=== PATIENT | male | born 1985 | race African-American/Black ===

== ENCOUNTER 2018-08-19 15:22 | Emergency (ER) | payer OTHER ==
--- NOTE | 2018-08-19 15:52 | ER Document Report ---
ED Medical Screen (RME) - General Chief Complaint: Chest Pain Stated Complaint: BLOOD PRESSURE ISSUE, CHEST PAIN Time Seen by Provider: 08/19/18 15:47 Notes: 32[facility]year-old [facility] a 2-year history of chest pain and difficulty breathing. He is also sent to have his blood pressure evaluated. I have greeted and performed a rapid initial assessment of this patient. A comprehensive ED assessment and evaluation of the patient, analysis of test results and completion of the medical decision making process will be conducted by additional ED providers. TRAVEL OUTSIDE OF THE [place] IN LAST 30 DAYS: No - Related Data Allergies/Adverse Reactions: No Known Allergies Allergy (Unverified 08/19/18 15:25) Past Medical History - Social History Chew tobacco use (# tins/day): No Frequency of alcohol use: None Drug Abuse: None Renal/ Medical History: Denies: Hx Peritoneal Dialysis Physical Exam - Vital signs Vitals: Temp Pulse Resp BP Pulse Ox 98.8 F 82 16 150/85 H 98 08/19/18 15:26 08/19/18 15:26 08/19/18 15:26 08/19/18 15:26 08/19/18 15:26 Course - Vital Signs Vital signs: Temp Pulse Resp BP Pulse Ox 98.8 F 82 16 150/85 H 98 08/19/18 15:26 08/19/18 15:26 08/19/18 15:26 08/19/18 15:26 08/19/18 15:26
--- NOTE | 2018-08-19 16:18 | RADIOLOGY REPORT (SQ) ---
EXAM DESCRIPTION: CHEST 2 VIEWS COMPLETED DATE/TIME: 08/19/2018 4:08 pm REASON FOR STUDY: SOB x 2 years COMPARISON: None. EXAM PARAMETERS: NUMBER OF VIEWS: two views TECHNIQUE: Digital Frontal and Lateral radiographic views of the chest acquired. RADIATION DOSE: NA LIMITATIONS: none FINDINGS: LUNGS AND PLEURA: No opacities, masses or pneumothorax. No pleural effusion. MEDIASTINUM AND HILAR STRUCTURES: No masses or contour abnormalities. HEART AND VASCULAR STRUCTURES: Heart normal size. No evidence for failure. BONES: No acute findings. HARDWARE: None in the chest. OTHER: No other significant finding. IMPRESSION: NO ACUTE RADIOGRAPHIC FINDING IN THE CHEST. TECHNICAL DOCUMENTATION: JOB ID: [id number] [employer]- All Rights Reserved Reading location - IP/workstation name: [email or web address]
[2018-08-19] MEDS ORDERED: CLONIDINE HCL 0.1 MG TABLET PO ONE (16:21)
--- NOTE | 2018-08-19 16:25 | ER Document Report ---
ED General - General Chief Complaint: Chest Pain Stated Complaint: BLOOD PRESSURE ISSUE, CHEST PAIN Time Seen by Provider: 08/19/18 15:47 Mode of Arrival: Ambulatory Information source: Patient Notes: 32-year-old male presents emergency department with complaints of intermittent chest pain, intermittent shortness of breath, hypertension. Patient states that he went to the [facility] today for evaluation was sent to the emergency department. Patient describes his chest pain as a throbbing sensation located in left chest. He denies any radiation of the pain. He denies any alleviating or exacerbating factors. He did not take any medication for his symptoms. Patient states that currently he is not having any chest pain or shortness of breath. He denies any medical problems. Patient denies any high blood pressure, diabetes, high cholesterol, smoking. Patient states that his brother at the age of 26 due to a heart attack. Patient denies any recent travel, recent surgeries, calf pain, history of DVT or PE, hormone use. TRAVEL OUTSIDE OF THE [place] IN LAST 30 DAYS: No - HPI Onset: This morning Onset/Duration: Sudden Quality of pain: No pain Severity: None Pain Level: Denies Associated symptoms: Shortness of breath Exacerbated by: Denies Relieved by: Denies Similar symptoms previously: Yes Recently seen / treated by doctor: No - Related Data Allergies/Adverse Reactions: No Known Allergies Allergy (Unverified 08/19/18 15:25) Past Medical History - General Information source: Patient - Social History Smoking Status: Former Smoker Chew tobacco use (# tins/day): No Frequency of alcohol use: None Drug Abuse: None Family History: CAD Patient has suicidal ideation: No Patient has homicidal ideation: No Renal/ Medical History: Denies: Hx Peritoneal Dialysis Review of Systems - Review of Systems Constitutional: No symptoms reported EENT: No symptoms reported Cardiovascular: Chest pain Respiratory: Short of breath Gastrointestinal: No symptoms reported Genitourinary: No symptoms reported Male Genitourinary: No symptoms reported Musculoskeletal: No symptoms reported Skin: No symptoms reported Hematologic/Lymphatic: No symptoms reported Neurological/Psychological: No symptoms reported -: Yes All other systems reviewed and negative Physical Exam - Vital signs Vitals: Temp Pulse Resp BP Pulse Ox 98.8 F 82 16 150/85 H 98 08/19/18 15:26 08/19/18 15:26 08/19/18 15:26 08/19/18 15:26 08/19/18 15:26 - Notes Notes: PHYSICAL EXAMINATION: GENERAL: Well-appearing, well-nourished and in no acute distress. HEAD: Atraumatic, normocephalic. EYES: Pupils equal round and reactive to light, extraocular movements intact, sclera anicteric, conjunctiva are normal. ENT: Nares patent, oropharynx clear without exudates. Moist mucous membranes. NECK: Normal range of motion, supple without lymphadenopathy LUNGS: Breath sounds clear to auscultation bilaterally and equal. No wheezes r ales or rhonchi. HEART: Regular rate and rhythm without murmurs ABDOMEN: Soft, nontender, nondistended abdomen. No guarding, no rebound. No masses appreciated. Musculoskeletal: Normal range of motion, no pitting or edema. No cyanosis. NEUROLOGICAL: Cranial nerves grossly intact. Normal speech, normal gait. Normal sensory, motor exams PSYCH: Normal mood, normal affect. SKIN: Warm, Dry, normal turgor, no rashes or lesions noted. Course - Re-evaluation Re-evalutation: 08/19/18 16:25 EKG: Ventricular rate 66, IL interval 156, QRS duration 84, QTc 382, sinus rhythm. No ST segment elevation. 08/19/18 19:00 Repeat EKG: Ventricular rate 67, IL interval 176, QRS duration 84, QTc 401, normal sinus rhythm. No ST segment elevation. 08/19/18 19:57 Labs and imaging obtained. No acute process identified. Troponin was negative x2. D-dimer was normal. Chest x-ray did not show any acute process. Patient continues to be asymptomatic while in the emergency department. Instructed patient to follow-up with his primary care physician this week, to take [id number] medication as needed for symptom relief, and to return to the emergency department if he has any worsening symptoms. Patient is agreeable to plan of care. - Vital Signs Vital signs: Temp Pulse Resp BP Pulse Ox 98.8 F 82 20 122/80 97 08/19/18 15:26 18 15:26 08/19/18 19:01 08/19/18 19:01 08/19/18 19:01 - Laboratory Result Diagrams: 08/19/18 16:19 08/19/18 16:19 Laboratory results interpreted by me: 08/19/18 08/19/18 16:19 16:19 Seg Neutrophils % 38.7 L Lymphocytes % 48.4 H Absolute Neutrophils 1.6 L Glucose 116 H Creatine Kinase 244 H Discharge - Discharge Clinical Impression: Chest pain Qualifiers: Chest pain type: unspecified Qualified Code(s): R07.9 - Chest pain, unspecified Disposition: HOME, SELF-CARE Instructions: Chest Pain of Unclear Cause ([facility]) [facility]errals: [facility] [[facility]] - Follow up as needed
[2018-08-19 16:54] LABS: ABSOLUTE EOSINOPHILS # (AUTO) 0.2 10^3/uL (0.0-0.6); ABSOLUTE LYMPHOCYTES (AUTO) 2.1 10^3/uL (0.5-4.7); ABSOLUTE MONOCYTES (AUTO) 0.4 10^3/uL (0.1-1.4); ABSOLUTE NEUT (AUTO) 1.6 10^3/uL (1.7-8.2); BASOPHILS % (AUTO) 0.7 % (0-2); EOSINOPHILS % (AUTO) 3.9 % (0-6); HEMATOCRIT 43.1 % (37.9-51.0); HEMOGLOBIN 15.3 g/dL (13.5-17.0); LYMPHOCYTES % (AUTO) 48.4 % (13-45); MEAN CORPUSCULAR HEMOGLOBIN 31.7 pg (27.0-33.4); MEAN CORPUSCULAR HGB CONC 35.4 g/dL (32.0-36.0); MEAN CORPUSCULAR VOLUME 90 fl (80-97); MONOCYTES % (AUTO) 8.3 % (3-13); PLATELET COUNT 167 10^3/uL (150-450); RED BLOOD COUNT 4.81 10^6/uL (4.35-5.55); RED CELL DISTRIBUTION WIDTH 12.8 % (11.5-14.0); SEGMENTED NEUTROPHILS % (AUTO) 38.7 % (42-78); TOTAL CELLS COUNTED % (AUTO) 100 %; WHITE BLOOD COUNT 4.3 10^3/uL (4.0-10.5)
[2018-08-19 16:55] LABS: APPEARANCE,URINE CLEAR; BILIRUBIN,URINE NEGATIVE (NEGATIVE); COLOR,URINE YELLOW; GLUCOSE, URINE NEGATIVE (NEGATIVE); KETONES,URINE NEGATIVE (NEGATIVE); LEUKOCYTE ESTERASE,URINE NEGATIVE (NEGATIVE); NITRITE,URINE NEGATIVE (NEGATIVE); PROTEIN,URINE NEGATIVE (NEGATIVE); UROBILINOGEN,URINE NEGATIVE mg/dL (<2.0)
[2018-08-19 17:14] LABS: ALANINE AMINOTRANSFERASE 45 U/L (21-72); ALBUMIN 4.7 g/dL (3.5-5.0); ALKALINE PHOSPHATASE 61 U/L (38-126); ANION GAP 9 (5-19); ASPARTATE AMINO TRANSFERASE 35 U/L (17-59); BILIRUBIN,DIRECT 0.2 mg/dL (0.0-0.4); BILIRUBIN,TOTAL 0.6 mg/dL (0.2-1.3); BLOOD UREA NITROGEN 12 mg/dL (7-20); CALCIUM 9.7 mg/dL (8.4-10.2); CARBON DIOXIDE 28 mmol/L (22-30); CHLORIDE 104 mmol/L (98-107); CREATINE KINASE 244 U/L (55-170); GLUCOSE 116 mg/dL (75-110)
[2018-08-19 17:28] LABS: FREE T4 (FREE THYROXINE) 0.83 ng/dL (0.78-2.19)
[2018-08-19 17:42] LABS: THYROID STIMULATING HORMONE 1.47 uIU/mL (0.47-4.68)
--- NOTE | 2018-08-19 18:21 | EKG REPORT ---
SEVERITY:- NORMAL ECG - SINUS RHYTHM : Confirmed by: J Carlos Colbert MD 19-Aug-2018 18:20:39
[2018-08-19 20:35] VITALS: BP 123/83
--- NOTE | 2018-08-20 07:54 | EKG REPORT ---
SEVERITY:- NORMAL ECG - SINUS RHYTHM : Confirmed by: J Carlos Colbert MD 20-Aug-2018 07:53:57
== END 2018-08-19 20:25 | disposition home or self-care (01) ==
LOC: ER 15:22
DX: R07.9 Chest pain, unspecified (principal); R06.02 Shortness of breath; R03.0 Elevated blood-pressure reading, without diagnosis of hypertension
CPT/HCPCS: 36415; 71046; 80053; 81001; 82550; 83735; 84439; 84443; 84484; 85025; 85379; 93005; 93010; 99285

== ENCOUNTER 2020-08-31 19:41 | Inpatient (IN) | payer OTHER ==
[2020-08-31] MEDS ORDERED: ONDANSETRON 4 MG TAB.RAPDIS PO ONE (20:24)
--- NOTE | 2020-08-31 20:27 | ER Document Report ---
ED Medical Screen (RME) - General Stated Complaint: CHEST PAIN ABDOMINAL PAINS Time Seen by Provider: 08/31/20 20:20 Primary Care Provider: ELLE SORIA [Primary Care Provider] - Follow up as needed Notes: Patient presents complaining of chest pain with shortness of breath for the past week. Patient does complain of some nausea. Patient states he had epigastric abdominal pain earlier today although it is currently resolved. Patient denies any fever or headache. Patient denies any vomiting or diarrhea. Patient does report a history of COPD. I have greeted and performed a rapid initial assessment of this patient. A comprehensive ED assessment and evaluation of the patient, analysis of test results and completion of the medical decision making process will be conducted by additional ED providers. TRAVEL OUTSIDE OF THE [place] IN LAST 30 DAYS: No - Related Data Allergies/Adverse Reactions: No Known Allergies Allergy (Unverified 08/19/18 15:25) Past Medical History Renal/ Medical History: Denies: Hx Peritoneal Dialysis Physical Exam - Vital signs Vitals: Temp Pulse Resp BP Pulse Ox 97.9 F 106 H 17 143/98 H 98 08/31/20 19:45 08/31/20 19:45 08/31/20 19:45 08/31/20 19:45 08/31/20 19:45 - Respiratory Respiratory status: Tachypnea Chest status: Tender Breath sounds: Normal Course - Vital Signs Vital signs: Temp Pulse Resp BP Pulse Ox 97.9 F 106 H 17 143/98 H 98 08/31/20 19:45 08/31/20 19:45 08/31/20 19:45 08/31/20 19:45 08/31/20 19:45 Doctor's Discharge - Discharge Referrals: ELLE SORIA [Primary Care Provider] - Follow up as needed
--- NOTE | 2020-08-31 21:11 | RADIOLOGY REPORT (SQ) ---
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 FINDINGS: Single view is obtained. Cardiac and mediastinal contours are normal. Lungs are clear. No pleural effusion or pneumothorax. IMPRESSION: No acute disease.
[2020-09-01] MEDS ORDERED: ONDANSETRON 4 MG TAB.RAPDIS ONE (01:25)
[2020-09-01 02:20] LABS: ABSOLUTE MONOCYTES (AUTO) 0.2 10^3/uL (0.1-1.4); ABSOLUTE NEUT (AUTO) 2.4 10^3/uL (1.7-8.2); BASOPHILS % (AUTO) 0.8 % (0-2); EOSINOPHILS % (AUTO) 0.2 % (0-6); HEMOGLOBIN 17.2 g/dL (13.5-17.0); LYMPHOCYTES % (AUTO) 42.3 % (13-45); MEAN CORPUSCULAR HEMOGLOBIN 31.3 pg (27.0-33.4); MEAN CORPUSCULAR HGB CONC 35.1 g/dL (32.0-36.0); MEAN CORPUSCULAR VOLUME 89 fl (80-97); PLATELET COUNT 164 10^3/uL (150-450); RED CELL DISTRIBUTION WIDTH 12.8 % (11.5-14.0); SEGMENTED NEUTROPHILS % (AUTO) 51.7 % (42-78); TOTAL CELLS COUNTED % (AUTO) 100 %; WHITE BLOOD COUNT 4.6 10^3/uL (4.0-10.5)
[2020-09-01 02:34] LABS: ALBUMIN 5.1 g/dL (3.5-5.0); ALKALINE PHOSPHATASE 92 U/L (38-126); ASPARTATE AMINO TRANSFERASE 18 U/L (17-59); BILIRUBIN,DIRECT 0.2 mg/dL (0.0-0.4); BILIRUBIN,TOTAL 0.9 mg/dL (0.2-1.3); BLOOD UREA NITROGEN 12 mg/dL (7-20); CALCIUM 10.8 mg/dL (8.4-10.2); GLUCOSE 381 mg/dL (75-110); POTASSIUM 4.7 mmol/L (3.6-5.0); TOTAL PROTEIN 8.5 g/dL (6.3-8.2)
[2020-09-01 02:40] LABS: CHLORIDE 101 mmol/L (98-107)
[2020-09-01 02:46] LABS: ANION GAP 27 (5-19); CARBON DIOXIDE 9 mmol/L (22-30)
--- NOTE | 2020-09-01 04:55 | ER Document Report ---
ED Medical Screen (RME) - General Chief Complaint: Chest Pain > 30 Stated Complaint: CHEST PAIN ABDOMINAL PAINS Time Seen by Provider: 08/31/20 20:20 Primary Care Provider: ELLE SORIA [Primary Care Provider] - Follow up as needed TRAVEL OUTSIDE OF THE [place] IN LAST 30 DAYS: No - HPI Context: Chief Complaint: [Chest abdominal pain] [34-year-old male presents to the emergency department complaining of chest abdominal pain. Patient denies any prior history of diabetes but states he does have a family history of diabetes. Patient has a pizza box in the room with him and he is requesting something for heartburn. Patient states he has been having shortness of breath for about a week and the epigastric pain started tonight. ] History obtained from [patient] Symptoms began:[Shortness of breath x1 week and epigastric pain x1 day] Onset: [Gradual] Timing: [Gradual] Quality: [Burning] Intensity: [5 out of 5] Location: [Lungs, chest and epigastric region] Radiation: [Denies] [The pain does not migrate to a new location.] Aggravating factors: [none] Relieving factors: [none] Positive SOB [Denies] nausea [Denies] vomiting [Denies] sweats [Denies] fever [Denies] cough [Denies] calf or leg swelling or pain - Related Data Allergies/Adverse Reactions: No Known Allergies Allergy (Unverified 08/19/18 15:25) Past Medical History - General Information source: Patient - Social History Family history: DM Renal/ Medical History: Denies: Hx Peritoneal Dialysis Review of Systems - Review of Systems Notes: Review of systems as below unless otherwise stated in HPI. CONSTITUTIONAL [No] fever, [No] chills. EYES [No] eye pain. ENT [No] URI symptoms, [No] sore throat, [No] ear pain. CARDIOVASCULAR Positive chest pain, [No] palpitations, [No] edema. RESPIRATORY [No] Cough, positive SOB, [No] wheezing. GASTROINTESTINAL Positive abdominal pain, [No] nausea, [No] Diarrhea, [No] Vomiting, [No] constipation, [No] melena, [No] rectal bleeding. GENITOURINARY [No] dysuria, [No] urinary frequency, [No] hematuria, [No] urinary urgency MUSCULOSKELETAL [No] Back pain. SKIN [No] Rash. NEUROLOGIC [No] Headache, [No] recent seizures, [No] paralysis,[No] parathesias. ENDOCRINE [No] polyuria. HEMO/LYMPATIC [No] easy brusing PSYCHIATRIC [No] depression. Physical Exam - Vital signs Vitals: Temp Pulse Resp BP Pulse Ox 97.9 F 106 H 17 143/98 H 98 08/31/20 19:45 08/31/20 19:45 08/31/20 19:45 08/31/20 19:45 08/31/20 19:45 - Notes Notes: CONSTITUTIONAL [Vital signs reviewed, Patient appears slightly uncomfortable, Alert and oriented X 3, Normal stature.] HEAD [Atraumatic, Normocephalic.] EYES [Eyes are normal to inspection, No discharge from eyes, Extraocular muscles i ntact, Sclera are normal, Conjunctiva are normal.] ENT [External ears normal to inspection, Nose examination normal, Mouth normal to inspection.] NECK [Normal ROM, No jugular venous distention, No meningeal signs, ] RESPIRATORY CHEST [Chest is nontender, Breath sounds normal, No respiratory distress. CARDIOVASCULAR [RRR, No murmurs, Normal S1 S2, No rub, No gallop.] ABDOMEN [Abdomen is nontender, No pulsatile masses, No other masses, Bowel sounds normal, No distension, No peritoneal signs, No hernias.] BACK [There is no CVA Tenderness, There is no tenderness to palpation, Normal inspect ion.] UPPER EXTREMITY [Inspection normal, No cyanosis, No clubbing, No edema, LOWER EXTREMITY [Inspection normal, No cyanosis, No clubbing, No edema, No calf tenderness, NEURO [No focal motor deficits, No focal sensory deficits, Speech normal.] SKIN [Skin is warm, Skin is dry, Skin is normal color.] PSYCHIATRIC [Normal affect. ] Course - Vital Signs Vital signs: Temp Pulse Resp BP Pulse Ox 97.9 F 72 18 138/98 H 100 08/31/20 19:45 09/01/20 00:30 09/01/20 04:02 09/01/20 04:02 09/01/20 04:02 - Laboratory Results Result Diagrams: 09/01/20 01:35 09/01/20 01:35 Laboratory Results Interpreted: 09/01/20 09/01/20 01:35 01:35 Hgb 17.2 H Sodium 136.8 L Carbon Dioxide 9 L* Anion Gap 27 H Glucose 381 H Calcium 10.8 H Total Protein 8.5 H Albumin 5.1 H Doctor's Discharge - Discharge [facility]errals: [facility] [[facility]] - Follow up as needed
[2020-09-01] MEDS ORDERED: LIDOCAINE 2% VISCOUS SOLN 15 ML UDCUP PO ONE (05:01)
[2020-09-01] MEDS ORDERED: METOCLOPRAMIDE HCL ORAL SOLN 10 MG/10 ML UDCUP PO ONE (05:01)
[2020-09-01] MEDS ORDERED: MAG HYDROX/AL HYDROX/SIMETH SUSP 30 ML UDCUP PO ONE (05:01)
--- NOTE | 2020-09-01 05:28 | ER Document Report ---
ED General - General Chief Complaint: Chest Pain > 30 Stated Complaint: CHEST PAIN ABDOMINAL PAINS Time Seen by Provider: 08/31/20 20:20 Mode of Arrival: Ambulatory Information source: Patient Notes: 34-year-old male presented to ED for complaint of chest pain shortness of breath for the past week. He states he is also been very thirsty frequently nauseated and urinating much more frequently than normal. He did have a glucose of 381 on the initial labs. I have ordered a hemoglobin A1c IV fluids and ABG. He states he has diabetes high blood pressure coronary artery disease and cholesterol on both sides of his family. He states that the [place] has told him several times that he has high blood pressure but they have never started him on any high blood pressure medication. He states he was just told in the beginning of 2019 that he had COPD and he quit smoking at that time. He states he drinks alcohol maybe every 2 or 3 months. He denies any past medical or surgical history except for the COPD. Constitutional: Negative for fever. HENT: Negative for sore throat. Eyes: Negative for visual changes. Cardiovascular: Chest pains off and on for the last week Respiratory: shortness of breath for the last week. Gastrointestinal: States he has had nausea off and on for the last week Genitourinary: Complains of more frequent urination Musculoskeletal: Negative for back pain. Skin: Negative for rash. Neurological: Negative for headaches, weakness or numbness. 10 point ROS negative except as marked above and in HPI. VITAL SIGNS: Within normal limits. GENERAL: No acute distress, non-toxic appearance. HEAD: Normal with no signs of head trauma. EYES: PERRLA, EOMI, conjunctiva normal, no discharge. EARS: Hearing grossly intact. NOSE: Normal. THROAT: Oropharynx is normal. NECK: Normal range of motion, no tenderness, supple, no lymphadenopathy, No adenopathy, no JVD. CHEST: Clear breath sounds bilaterally. No wheezes, rales, or rhonchi. CARDIAC: Regular rate and rhythm. S1 and S2, without murmurs, gallops, or rubs. VASCULAR: No Edema. Peripheral pulses normal and equal in all extremities. ABDOMEN: Epigastric pain and heartburn GASTROINTESTINAL: Bowel sounds normal GENITOURINARY: Normal, No tenderness LYMPATHTIC: No lymphadenopathy noted. MUSCULOSKELETAL: Good range of motion of all major joints. Extremities without clubbing, cyanosis or edema. NEUROLOGICAL: Alert and oriented x 3. No focal sensory or strength deficits. Speech normal. Follows commands appropriately. PSYCHIATRIC: Normal Affect, judgement and mood. SKIN: Normal appearance with no rashes or lesions. TRAVEL OUTSIDE OF THE [place] IN LAST 30 DAYS: No - HPI Onset: Last week Onset/Duration: Intermittent Quality of pain: Other - Heartburn Severity: Moderate Pain Level: 3 Associated symptoms: Chest pain - Epigastric pain, Nausea, Other - More frequent urination more frequent thirst Exacerbated by: Denies Relieved by: Denies Similar symptoms previously: Yes Recently seen / treated by doctor: No - Related Data Allergies/Adverse Reactions: No Known Allergies Allergy (Unverified 08/19/18 15:25) Past Medical History - General Information source: Patient - Social History Smoking Status: Former Smoker Cigarette use (# per day): No Chew tobacco use (# tins/day): No Smoking Education Provided: No Frequency of alcohol use: Occasional Drug Abuse: None Lives with: Family Family History: CAD, DM, Hyperlipidemia, Hypertension Patient has suicidal ideation: No Patient has homicidal ideation: No - Past Medical History Cardiac Medical History: Reports: Hx Hypertension Pulmonary Medical History: Reports: Hx COPD EENT Medical History: Reports: None Neurological Medical History: Reports: None Endocrine Medical History: Reports: None Renal/ Medical History: Reports: None Malignancy Medical History: Reports None GI Medical History: Reports: None Musculoskeletal Medical History: Reports None Skin Medical History: Reports None Psychiatric Medical History: Reports: None Traumatic Medical History: Reports: None Infectious Medical History: Reports: None Surgical Hx: Negative Past Surgical History: Reports: None - Immunizations Immunizations up to date: No Hx Diphtheria, Pertussis, Tetanus Vaccination: No History of Pneumococcal Vaccine: No History of Influenza Vaccine for 05/2019 - 10/2019 Season: No Physical Exam - Vital signs Vitals: Temp Pulse Resp BP Pulse Ox 97.9 F 106 H 17 143/98 H 98 08/31/20 19:45 08/31/20 19:45 08/31/20 19:45 08/31/20 19:45 08/31/20 19:45 Course - Re-evaluation Re-evalutation: 09/01/20 09:22 34-year-old male presented to ED earlier this shift for chest pain shortness of breath with increased thirst and urination. Patient stated that his family has a long history on both sides for diabetes blood pressure and multiple other chronic ailments and he was very upset when I informed him that his sugar was such that he was diabetic. I did discuss with him the need to be admitted and started on insulin drip due to his acidosis. He has been given 2 L of fluid and when I talked to Dr. Glass she stated he would need another 2 L and she was admitting to [facility]. Ready spoke with Dr. Santo who commended start the patient on a insulin drip. This was started prior to his admission. - Vital Signs Vital signs: Temp Pulse Resp BP Pulse Ox 97.9 F 72 16 147/94 H 100 08/31/20 19:45 09/01/20 00:30 09/01/20 08:01 09/01/20 08:01 09/01/20 08:01 - Laboratory Results Result Diagrams: 09/01/20 01:35 09/01/20 05:50 Laboratory Results Interpreted: 09/01/20 09/01/20 09/01/20 01:35 01:35 01:35 Hgb 17.2 H Carbonic Acid ABG pH ABG pCO2 ABG pO2 ABG HCO3 ABG Total CO2 ABG O2 Saturation Sodium 136.8 L Carbon Dioxide 9 L* Anion Gap 27 H Glucose 381 H POC Glucose Hemoglobin A1c % > 14.0 H Calcium 10.8 H Total Protein 8.5 H Albumin 5.1 H Urine Protein Urine Glucose (UA) Urine Ketones Urine Blood 09/01/20 09/01/20 09/01/20 05:15 05:50 05:55 Hgb Carbonic Acid 0.49 L ABG pH 7.27 L ABG pCO2 16.3 L* ABG pO2 133.9 H ABG HCO3 7.2 L ABG Total CO2 7.8 L ABG O2 Saturation 98.4 H Sodium 136.0 L Carbon Dioxide 9 L* Anion Gap 25 H Glucose 378 H POC Glucose Hemoglobin A1c % Calcium Total Protein 8.8 H Albumin Urine Protein 30 H Urine Glucose (UA) >=500 H Urine Ketones 80 H Urine Blood SMALL H 09/01/20 09/01/20 07:15 08:11 Hgb Carbonic Acid ABG pH ABG pCO2 ABG pO2 ABG HCO3 ABG Total CO2 ABG O2 Saturation Sodium Carbon Dioxide Anion Gap Glucose POC Glucose 354 H 308 H Hemoglobin A1c % Calcium Total Protein Albumin Urine Protein Urine Glucose (UA) Urine Ketones Urine Blood Critical Laboratory Results Reviewed: Yes Attending or Supervising Physician who Reviewed Labs: BRIELLE SANTO IV - co2 9 glucose 414,arterial blood co2 16.3 - Radiology Results Critical Radiology Results Reviewed: No Critical Results Discharge - Discharge Clinical Impression: DKA (diabetic ketoacidoses) Qualifiers: Diabetes mellitus type: other specified (including NARESH) Diabetes mellitus complication detail: without coma Qualified Code(s): E13.10 - Other specified diabetes mellitus with ketoacidosis without coma Disposition: ADMITTED INPATIENT Admitting Provider: Quan (Hospitalist) Unit Admitted: [facility]
[2020-09-01] MEDS: NORMAL SALINE 1000 ML 1,000 ML IV PRN ×2 (05:38→06:43)
[2020-09-01 06:07] LABS: ARTERIAL BLOOD BASE EXCESS -16.1 mmol/L; ARTERIAL BLOOD H2CO3 0.49 mmol/L (1.05-1.35); ARTERIAL BLOOD HCO3 7.2 mmol/L (20-24); ARTERIAL BLOOD O2 SATURATION 98.4 % (94-98); ARTERIAL BLOOD PH 7.27 (7.35-7.45); ARTERIAL BLOOD PO2 133.9 mmHg (80-100); ARTERIAL BLOOD TOTAL CO2 7.8 mmol/L (23-27)
[2020-09-01 06:08] LABS: ARTERIAL BLOOD FIO2 ROOM AIR
[2020-09-01 06:09] LABS: ARTERIAL BLOOD PCO2 16.3 mmHg (35-45)
[2020-09-01] MEDS ORDERED: DEXTROSE 50%-WATER 25 GM/50 ML DISP.SYRIN IV PRN ×4 (06:41→11:50)
[2020-09-01] MEDS ORDERED: DEXTROSE 40% GEL 15 GM TUBE PO PRN ×5 (06:41→11:50)
[2020-09-01] MEDS ORDERED: GLUCAGON,HUMAN RECOMB 1 MG INJ IM PRN ×3 (06:41→11:50)
[2020-09-01] MEDS ORDERED: NORMAL SALINE 100 ML with INSULIN REGULAR, HUMAN 100 UNIT IV PRN ×4 (06:41→09:47)
[2020-09-01] MEDS ORDERED: INSULIN REG, HUMAN 100 UNIT/ML 3 ML VIAL (PYX) ONE (07:02)
[2020-09-01 07:06] LABS: APPEARANCE,URINE CLEAR; BILIRUBIN,URINE NEGATIVE (NEGATIVE); COLOR,URINE STRAW; GLUCOSE, URINE >=500 mg/dL (NEGATIVE); KETONES,URINE 80 mg/dL (NEGATIVE); LEUKOCYTE ESTERASE,URINE NEGATIVE (NEGATIVE); NITRITE,URINE NEGATIVE (NEGATIVE); PROTEIN,URINE 30 mg/dL (NEGATIVE); URINE SPECIFIC GRAVITY 1.035; UROBILINOGEN,URINE NEGATIVE mg/dL (<2.0)
[2020-09-01 07:32] LABS: ALKALINE PHOSPHATASE 92 U/L (38-126); ASPARTATE AMINO TRANSFERASE 22 U/L (17-59); BILIRUBIN,DIRECT 0.3 mg/dL (0.0-0.4); BILIRUBIN,TOTAL 0.8 mg/dL (0.2-1.3); BLOOD UREA NITROGEN 12 mg/dL (7-20); CALCIUM 10.2 mg/dL (8.4-10.2); GLUCOSE 378 mg/dL (75-110); POTASSIUM 4.5 mmol/L (3.6-5.0); TOTAL PROTEIN 8.8 g/dL (6.3-8.2)
[2020-09-01 07:40] LABS: CHLORIDE 102 mmol/L (98-107)
[2020-09-01 07:47] LABS: ANION GAP 25 (5-19)
[2020-09-01 07:48] LABS: CARBON DIOXIDE 9 mmol/L (22-30)
--- NOTE | 2020-09-01 07:54 | EKG REPORT ---
SEVERITY:- NORMAL ECG - SINUS RHYTHM : Confirmed by: Senthil Alfredo MD 01-Sep-2020 07:53:20
[2020-09-01] MEDS ORDERED: NORMAL SALINE 1000 ML 1,000 ML IV PRN (07:55)
[2020-09-01] MEDS ORDERED: ONDANSETRON HCL INJ/PF 4 MG/2 ML SDV IV PRN (09:47)
[2020-09-01] MEDS ORDERED: PROMETHAZINE HCL INJ 25 MG/1 ML VIAL IV PRN (09:47)
[2020-09-01] MEDS ORDERED: MAG HYDROX/AL HYDROX/SIMETH SUSP 30 ML UDCUP PO PRN (09:47)
[2020-09-01] MEDS ORDERED: IPRATROPIUM/ALBUTEROL 0.5-2.5 MG/3 ML AMPUL NEB PRN (09:47)
[2020-09-01] MEDS ORDERED: AMLODIPINE BESYLATE 5 MG TABLET PO SCH (10:00)
--- NOTE | 2020-09-01 10:04 | PDOC H&P ---
History of Present Illness Admission Date/PCP: 09/01/20 08:[facility] Patient complains of: shortness of breath History of Present Illness: SELINA PASTRANA is a 34 year old male who presented to the emergency department today with a complaint of dyspnea on exertion associated with dizziness and palpitations, changes in taste, loss of smell, body aches, and epigastric pain with nausea x4 days. Evaluation in the emergency department revealed Tachycardia, hypertension, tachypnea, but otherwise stable vital signs. CBC was remarkable only for a hemoglobin of 17.2 (likely hemoconcentrated in setting of dehydration), anion gap 27, bicarb 9, glucose 381, hemoglobin A1c 14, negative troponins x2, urinalysis significant for protein, glucose, ketones, blood, and an ABG demonstrating uncompensated metabolic acidosis with a pH of 7.27. He is provided IV fluid resuscitation and started on insulin drip. He was then referred to the hospitalist service for further evaluation management of the above-stated complaints findings. Past Medical History Cardiac Medical History: Reports: Hypertension Denies: Coronary Artery Disease, Myocardial Infarction, Hyperlipidema Pulmonary Medical History: Reports: Chronic Obstructive Pulmonary Disease (COPD) EENT Medical History: Reports: None Neurological Medical History: Reports: None Endocrine Medical History: Reports: Obesity Denies: Diabetes Mellitus Type 2, Hypothyroidism Renal/ Medical History: Reports: None Malignancy Medical History: Reports: None GI Medical History: Reports: None Musculoskeltal Medical History: Reports: None Skin Medical History: Reports: None Psychiatric Medical History: Reports: None Traumatic Medical History: Reports: None Infectious Medical History: Reports: None Past Surgical History Past Surgical History: Reports: None Social History Information Source: Patient Lives with: Family Smoking Status: Former Smoker Electronic Cigarette use?: No Frequency of Alcohol Use: Rare Hx Recreational Drug Use: No Hx Prescription Drug Abuse: No - Advance Directive Resuscitation Status: Full Code Family History Family History: CAD, DM, Hyperlipidemia, Hypertension Parental Family History Reviewed: Yes Children Family History Reviewed: Yes Sibling(s) Family History Reviewed.: Yes Medication/Allergy Home Medications: No Home Medications 08/19/18 Allergies/Adverse Reactions: No Known Allergies Allergy (Unverified 08/19/18 15:25) Review of Systems Constitutional: PRESENT: anorexia. ABSENT: chills, fever(s), headache(s), weight gain, weight loss Eyes: ABSENT: visual disturbances Ears: ABSENT: hearing changes Cardiovascular: PRESENT: dyspnea on exertion, palpitations. ABSENT: chest pain, edema, orthropnea Respiratory: PRESENT: dyspnea. ABSENT: cough, hemoptysis Gastrointestinal: PRESENT: constipation, nausea. ABSENT: abdominal pain, diarrhea, hematemesis, hematochezia, vomiting Genitourinary: ABSENT: dysuria, hematuria Musculoskeletal: ABSENT: joint swelling Integumentary: ABSENT: rash, wounds Neurological: ABSENT: abnormal gait, abnormal speech, confusion, dizziness, focal weakness, syncope Psychiatric: ABSENT: anxiety, depression, homidical ideation, suicidal ideation Endocrine: PRESENT: polydipsia, polyuria. ABSENT: cold intolerance, heat intol erance Hematologic/Lymphatic: ABSENT: easy bleeding, easy bruising Physical Exam Vital Signs: Temp Pulse Resp BP Pulse Ox 97.9 F 72 16 147/94 H 100 08/31/20 19:45 09/01/20 00:30 09/01/20 08:01 09/01/20 08:01 09/01/20 08:01 Intake & Output 08/31/20 09/01/20 09/02/20 06:59 06:59 06:59 Intake Total 1000 1004 Balance 1000 1004 Weight 102.4 kg General appearance: PRESENT: no acute distress, cooperative, well-developed, well-nourished Head exam: PRESENT: atraumatic, normocephalic Eye exam: PRESENT: conjunctiva pink, EOMI, PERRLA. ABSENT: scleral icterus Mouth exam: PRESENT: dry mucosa, tongue midline. ABSENT: laceration, neck supple, other Neck exam: ABSENT: carotid bruit, JVD, lymphadenopathy, thyromegaly Respiratory exam: PRESENT: clear to auscultation corina, symmetrical, unlabored, other - Room air. ABSENT: rales, rhonchi, wheezes Cardiovascular exam: PRESENT: RRR, +S1, +S2. ABSENT: diastolic murmur, rubs, systolic murmur Pulses: PRESENT: normal dorsalis pedis pul Vascular exam: PRESENT: normal capillary refill GI/Abdominal exam: PRESENT: normal bowel sounds, soft, tenderness - Epigastric; not worsened with palpation. ABSENT: distended, guarding, mass, organolmegaly, rebound Rectal exam: PRESENT: deferred Extremities exam: PRESENT: full ROM. ABSENT: calf tenderness, clubbing, pedal edema Musculoskeletal exam: PRESENT: ambulatory Neurological exam: PRESENT: alert, awake, oriented to person, oriented to place, oriented to time, oriented to situation, CN II-XII grossly intact. ABSENT: motor sensory deficit Psychiatric exam: PRESENT: appropriate affect, normal mood. ABSENT: homicidal ideation, suicidal ideation Skin exam: PRESENT: dry, intact, warm. ABSENT: cyanosis, rash Results Laboratory Results: 09/01/20 01:35 09/01/20 05:50 09/01/20 09/01/20 09/01/20 01:35 01:35 05:15 WBC 4.6 RBC 5.50 Hgb 17.2 H Hct 49.0 MCV 89 MCH 31.3 MCHC 35.1 RDW 12.8 Plt Count 164 Seg Neutrophils % 51.7 Carbonic Acid 0.49 L HCO3/H2CO3 Ratio 14:1 ABG pH 7.27 L ABG pCO2 16.3 L* ABG pO2 133.9 H ABG HCO3 7.2 L ABG O2 Saturation 98.4 H ABG Base Excess -16.1 FiO2 ROOM AIR Sodium 136.8 L Potassium 4.7 Chloride 101 Carbon Dioxide 9 L* Anion Gap 27 H BUN 12 Creatinine 1.05 Est GFR ( Amer) > 60 Glucose 381 H Calcium 10.8 H Total Bilirubin 0.9 AST 18 Alkaline Phosphatase 92 Total Protein 8.5 H Albumin 5.1 H Lipase 206.4 Urine Color Urine Appearance Urine pH Ur Specific [place] Urine Protein Urine Glucose (UA) Urine Ketones Urine Blood Urine Nitrite Ur Leukocyte Esterase Urine WBC (Auto) 09/01/20 09/01/20 05:50 05:55 WBC RBC Hgb Hct MCV MCH MCHC RDW Plt Count Seg Neutrophils % Carbonic Acid HCO3/H2CO3 Ratio ABG pH ABG pCO2 ABG pO2 ABG HCO3 ABG O2 Saturation ABG Base Excess FiO2 Sodium 136.0 L Potassium 4.5 Chloride 102 Carbon Dioxide 9 L* Anion Gap 25 H BUN 12 Creatinine 1.04 Est GFR ( Amer) > 60 Glucose 378 H Calcium 10.2 Total Bilirubin 0.8 AST 22 Alkaline Phosphatase 92 Total Protein 8.8 H Albumin 5.0 Lipase Urine Color STRAW Urine Appearance CLEAR Urine pH 5.0 Ur Specific [place] 1.035 Urine Protein 30 H Urine Glucose (UA) >=500 H Urine Ketones 80 H Urine Blood SMALL H Urine Nitrite NEGATIVE Ur Leukocyte Esterase NEGATIVE Urine WBC (Auto) 0 09/01/20 09/01/20 01:35 05:50 Troponin I < 0.012 < 0.012 Impressions: Chest X-Ray 08/31/20 20:23 IMPRESSION: No acute disease. Assessment and Plan - Diagnosis (1) DKA (diabetic ketoacidoses) Qualifiers: Diabetes mellitus type: other specified (including NARESH) Diabetes mellitus complication detail: without coma Qualified Code(s): E13.10 - Other specified diabetes mellitus with ketoacidosis without coma Is this a current diagnosis for this admission?: Yes Plan: Patient is admitted to [facility] on continuous cardiac telemetry. He is provided generous IV fluids. Will adjust fluids as electrolytes indicate. Maintain n.p.o. status with the exception of ice chips and small sips of water. Currently on insulin drip. Titrate per protocol. Serial chemistries. (2) Uncontrolled diabetes mellitus Qualifiers: Glycemic state: with hyperglycemia Is this a current diagnosis for this admission?: Yes Plan: New diagnosis diabetes mellitus. A1c > 14%. Presents in DKA. Currently n.p.o.; will advance to consistent carb when appropriate. Currently on insulin drip. Will require subcutaneous insulin at discharge. Registered dietitian and asthma educator consulted. (3) Hypertension Is this a current diagnosis for this admission?: Yes Plan: Start lisinopril. Monitor for effect and adjust antihypertensives as indicated. (4) Suspected COVID-19 virus infection Is this a current diagnosis for this admission?: Yes Plan: The patient presented with complaints of dyspnea, dizziness, palpitations, anorexia, changes to sense of taste, and near-complete loss of sense of smell that have gradually worsened over the previous 4 days. On ROS elicited symptoms of epigastric pain, nausea, polydipsia and polyuria prompting evaluation for hyperglycemia. We will obtain COVID testing. We will check d-dimer, ferritin, CRP, LDH. Encourage pulmonary toilet. Isolation precautions. - Time Time Spent with patient: 35 or more minutes Medications reviewed and adjusted accordingly: Yes Anticipated Discharge Disposition: Home, Self Care Anticipated Discharge Timeframe: within 72 hours
[2020-09-01] MEDS ORDERED: DEXTROSE 50%-WATER SYRINGE 12.5 GM/25 ML DOSE IV PRN (10:30)
[2020-09-01] MEDS ORDERED: PANTOPRAZOLE SODIUM 40 MG VIAL IV ONE (10:30)
[2020-09-01] MEDS ORDERED: DEXTROSE 50%-WATER SYRINGE 25 GM/50 ML DOSE IV PRN (10:30)
[2020-09-01] MEDS ORDERED: DEXTROSE 40% GEL 15 GM TUBE X 2 PO PRN (10:30)
[2020-09-01 11:17] LABS: ANION GAP 17 (5-19); BLOOD UREA NITROGEN 11 mg/dL (7-20); CALCIUM 8.8 mg/dL (8.4-10.2); CARBON DIOXIDE 15 mmol/L (22-30); CHLORIDE 108 mmol/L (98-107); GLUCOSE 232 mg/dL (75-110); POTASSIUM 3.9 mmol/L (3.6-5.0)
[2020-09-01 11:59] LABS: C-REACTIVE PROTEIN < 5.0 mg/L (<10.0)
[2020-09-01] MEDS ORDERED: INSULIN GLARGINE,HUM.REC.ANLOG 1,000 UNIT/10 ML VIAL SUBCUT ONE ×2 (12:15→13:30)
[2020-09-01] MEDS: LISINOPRIL 10 MG TABLET PO SCH (12:20)
[2020-09-01] MEDS: ENOXAPARIN SODIUM INJ 40 MG/0.4 ML DISP.SYRIN SUBCUT SCH (12:21)
[2020-09-01] MEDS: INSULIN LISPRO 100 UNIT/ML 3 ML VIAL SUBCUT SCH ×2 (12:22→17:25)
[2020-09-01] MEDS: ACETAMINOPHEN 325 MG TABLET PO PRN (17:25)
[2020-09-01 19:48] LABS: ANION GAP 14 (5-19); BLOOD UREA NITROGEN 9 mg/dL (7-20); CALCIUM 8.5 mg/dL (8.4-10.2); CARBON DIOXIDE 11 mmol/L (22-30); CHLORIDE 106 mmol/L (98-107); GLUCOSE 328 mg/dL (75-110); POTASSIUM 3.7 mmol/L (3.6-5.0)
[2020-09-02] MEDS: INSULIN LISPRO 100 UNIT/ML 3 ML VIAL SUBCUT SCH ×6 (00:50→22:20)
[2020-09-02 02:42] LABS: ANION GAP 14 (5-19); BLOOD UREA NITROGEN 8 mg/dL (7-20); CALCIUM 8.7 mg/dL (8.4-10.2); CARBON DIOXIDE 14 mmol/L (22-30); CHLORIDE 105 mmol/L (98-107); GLUCOSE 337 mg/dL (75-110); POTASSIUM 3.8 mmol/L (3.6-5.0)
[2020-09-02] MEDS: NORMAL SALINE 1000 ML 1,000 ML IV PRN ×3 (04:00→17:22)
[2020-09-02 07:31] LABS: ANION GAP 11 (5-19); BLOOD UREA NITROGEN 7 mg/dL (7-20); CALCIUM 8.7 mg/dL (8.4-10.2); CARBON DIOXIDE 15 mmol/L (22-30); CHLORIDE 105 mmol/L (98-107); CHOLESTEROL 228.98 mg/dL (0-200); GLUCOSE 274 mg/dL (75-110); POTASSIUM 3.4 mmol/L (3.6-5.0); TRIGLYCERIDES 118 mg/dL (<150)
[2020-09-02 07:39] LABS: HEMATOCRIT 39.3 % (37.9-51.0); MEAN CORPUSCULAR HEMOGLOBIN 31.5 pg (27.0-33.4); MEAN CORPUSCULAR HGB CONC 35.9 g/dL (32.0-36.0); MEAN CORPUSCULAR VOLUME 88 fl (80-97); PLATELET COUNT 124 10^3/uL (150-450); RED BLOOD COUNT 4.48 10^6/uL (4.35-5.55); RED CELL DISTRIBUTION WIDTH 12.9 % (11.5-14.0); WHITE BLOOD COUNT 3.5 10^3/uL (4.0-10.5)
[2020-09-02 07:40] LABS: HEMOGLOBIN 14.1 g/dL (13.5-17.0)
[2020-09-02 07:42] LABS: DIRECT LDL 151 mg/dL (<100)
[2020-09-02] MEDS ORDERED: INSULIN GLARGINE,HUM.REC.ANLOG 1,000 UNIT/10 ML VIAL SUBCUT SCH (10:00)
[2020-09-02] MEDS: INSULIN GLARGINE,HUM.REC.ANLOG 1,000 UNIT/10 ML VIAL SUBCUT SCH (11:13)
[2020-09-02] MEDS: LISINOPRIL 10 MG TABLET PO SCH (11:13)
[2020-09-02] MEDS: SODIUM BICARBONATE 650 MG TABLET PO SCH ×2 (11:13→22:20)
[2020-09-02] MEDS: ENOXAPARIN SODIUM INJ 40 MG/0.4 ML DISP.SYRIN SUBCUT SCH (11:14)
[2020-09-02] MEDS ORDERED: ALBUTEROL SULFATE HFA (90 MCG/PUFF) 8 GM MDI IH PRN (20:09)
--- NOTE | 2020-09-02 20:17 | PDOC PROGRESS REPORT ---
Subjective Date:: 09/02/20 Subjective:: The patient is a 34-year-old male with a past medical history of hypertension, COPD, and obesity who was admitted 09/01/20 with new onset diabetes mellitus and DKA. Patient was seen on morning rounds. Is found resting in bed, comfortably, on room air. He reports he is feeling well today. He denies all symptoms and is hopeful to discharge home soon. He specifically denies fever, chills, chest pain, palpitations, dyspnea, orthopnea, cough, abdominal pain, nausea, vomiting, diarrhea, polydipsia and polyuria. He has no questions or concerns at this time. No concerns per nursing. Reason For Visit: DKA, NEW ONSET DIABETES, SUSPECT COVID Physical Exam Vital Signs: Temp Pulse Resp BP Pulse Ox 97.8 F 82 17 122/59 L 99 09/02/20 11:34 09/02/20 19:00 09/02/20 16:48 09/02/20 16:48 09/02/20 16:48 Intake & Output 09/01/20 09/02/20 09/03/20 06:59 06:59 06:59 Intake Total 1000 2760 2944 Balance 1000 2760 2944 Weight 102.4 kg 102.4 kg General appearance: PRESENT: no acute distress, cooperative, obese, well- developed, well-nourished Head exam: PRESENT: atraumatic, normocephalic Eye exam: PRESENT: conjunctiva pink, EOMI, PERRLA. ABSENT: scleral icterus Mouth exam: PRESENT: moist, tongue midline Respiratory exam: PRESENT: clear to auscultation corina, symmetrical, unlabored. ABSENT: rales, rhonchi, wheezes Cardiovascular exam: PRESENT: RRR. ABSENT: diastolic murmur, rubs, systolic murmur Pulses: PRESENT: normal dorsalis pedis pul Vascular exam: PRESENT: normal capillary refill Extremities exam: PRESENT: full ROM. ABSENT: calf tenderness, clubbing, pedal edema Neurological exam: PRESENT: alert, awake, oriented to person, oriented to place, oriented to time, oriented to situation, CN II-XII grossly intact. ABSENT: motor sensory deficit Psychiatric exam: PRESENT: appropriate affect, normal mood. ABSENT: homicidal ideation, suicidal ideation Skin exam: PRESENT: dry, intact, warm. ABSENT: cyanosis, rash Results Laboratory Results: 09/02/20 06:54 09/02/20 06:54 09/02/20 09/02/20 09/02/20 01:29 06:54 06:54 WBC 3.5 L RBC 4.48 Hgb 14.1 D Hct 39.3 MCV 88 MCH 31.5 MCHC 35.9 RDW 12.9 Plt Count 124 L Sodium 133.4 L 130.7 L Potassium 3.8 3.4 L Chloride 105 105 Carbon Dioxide 14 L 15 L Anion Gap 14 11 BUN 8 7 Creatinine 0.70 0.66 Est GFR ( Amer) > 60 > 60 Glucose 337 H 274 H Calcium 8.7 8.7 Triglycerides 118 Cholesterol 228.98 H LDL Cholesterol Direct 151 H VLDL Cholesterol 24.0 HDL Cholesterol 59 TSH 09/02/20 06:54 WBC RBC Hgb Hct MCV MCH MCHC RDW Plt Count Sodium Potassium Chloride Carbon Dioxide Anion Gap BUN Creatinine Est GFR ( Amer) Glucose Calcium Triglycerides Cholesterol LDL Cholesterol Direct VLDL Cholesterol HDL Cholesterol TSH 1.42 09/01/20 09/01/20 01:35 05:50 Troponin I < 0.012 < 0.012 Impressions: Chest X-Ray 08/31/20 20:23 IMPRESSION: No acute disease. Assessment and Plan - Diagnosis (1) DKA (diabetic ketoacidoses) Qualifiers: Diabetes mellitus type: other specified (including NARESH) Diabetes mellitus complication detail: without coma Qualified Code(s): E13.10 - Other specified diabetes mellitus with ketoacidosis without coma Is this a current diagnosis for this admission?: Yes Plan: Improved; Anion gap is closed, Bicrab increased to 15, glucose 300s Patient is admitted to [facility] on continuous cardiac telemetry. Unfortunately, nursing discontinued IV fluids. Therefore he went nearly 24 hours without receiving IV fluid resuscitation and remains acidotic. Resume IVF. The patient has been started on subcutaneous long-acting and sliding scale insulin. Insulin drip discontinued. He has been advanced to a consistent carb diet. Serial chemistries. (2) Uncontrolled diabetes mellitus Qualifiers: Glycemic state: with hyperglycemia Is this a current diagnosis for this admission?: Yes Plan: New diagnosis diabetes mellitus. A1c > 14%. Presents in DKA. Lantus 12 units daily Consistent carb diet with Humalog for SSI. Hypoglycemia protocol. Registered dietitian and nurse educator consulted. (3) Hypertension Is this a current diagnosis for this admission?: Yes Plan: Blood pressures are improved. Continue lisinopril. Monitor for effect and adjust antihypertensives as indicated. (4) Suspected COVID-19 virus infection Is this a current diagnosis for this admission?: Yes Plan: Ruled out; COVID testing is negative. The patient presented with complaints of dyspnea, dizziness, palpitations, anorexia, changes to sense of taste, and near-complete loss of sense of smell that have gradually worsened over the previous 4 days. On ROS elicited symptoms of epigastric pain, nausea, polydipsia and polyuria prompting evaluation for hyperglycemia. - Time Time Spent with patient: 25-34 minutes Medications reviewed and adjusted accordingly: Yes Anticipated Discharge Disposition: Home, Self Care Anticipated Discharge Timeframe: within 24 hours
[2020-09-02] MEDS ORDERED: (PENDING PHARMACY ID) (Budesonide/Formoterol Fumarate 60 PUFF/6 GM Inhaler) IH SCH (22:00)
[2020-09-03] MEDS: NORMAL SALINE 1000 ML 1,000 ML IV PRN ×2 (00:03→09:19)
[2020-09-03 06:03] LABS: ANION GAP 11 (5-19); BLOOD UREA NITROGEN 8 mg/dL (7-20); CALCIUM 8.5 mg/dL (8.4-10.2); CARBON DIOXIDE 19 mmol/L (22-30); CHLORIDE 102 mmol/L (98-107); GLUCOSE 241 mg/dL (75-110); POTASSIUM 3.2 mmol/L (3.6-5.0)
[2020-09-03] MEDS ORDERED: ALBUTEROL SULFATE HFA (90 MCG/PUFF) 8 GM MDI IH PRN (07:30)
[2020-09-03] MEDS: INSULIN LISPRO 100 UNIT/ML 3 ML VIAL SUBCUT SCH ×3 (09:18→16:53)
[2020-09-03] MEDS: ACETAMINOPHEN 325 MG TABLET PO PRN (09:37)
[2020-09-03] MEDS: SODIUM BICARBONATE 650 MG TABLET PO SCH (09:38)
[2020-09-03] MEDS: INSULIN GLARGINE,HUM.REC.ANLOG 1,000 UNIT/10 ML VIAL SUBCUT SCH (09:38)
[2020-09-03] MEDS: LISINOPRIL 10 MG TABLET PO SCH (09:38)
[2020-09-03] MEDS: ENOXAPARIN SODIUM INJ 40 MG/0.4 ML DISP.SYRIN SUBCUT SCH (09:39)
[2020-09-03] MEDS ORDERED: POTASSIUM CHLORIDE 10 MEQ TABLET.ER PO ONE ×2 (10:00→18:30)
[2020-09-03] MEDS ORDERED: FLUTICASONE/VILANTEROL 200-25 MCG/DOSE IH SCH (10:00)
[2020-09-03 13:38] LABS: ANION GAP 11 (5-19); BLOOD UREA NITROGEN 8 mg/dL (7-20); CALCIUM 8.6 mg/dL (8.4-10.2); CARBON DIOXIDE 18 mmol/L (22-30); CHLORIDE 103 mmol/L (98-107); GLUCOSE 259 mg/dL (75-110); POTASSIUM 3.2 mmol/L (3.6-5.0)
[2020-09-03] MEDS ORDERED: INSULIN GLARGINE,HUM.REC.ANLOG 1,000 UNIT/10 ML VIAL SUBCUT ONE (16:00)
[2020-09-03 17:17] LABS: ANION GAP 7 (5-19); BLOOD UREA NITROGEN 9 mg/dL (7-20); CALCIUM 8.6 mg/dL (8.4-10.2); CARBON DIOXIDE 22 mmol/L (22-30); CHLORIDE 101 mmol/L (98-107); GLUCOSE 232 mg/dL (75-110); POTASSIUM 3.3 mmol/L (3.6-5.0)
[2020-09-03 17:47] VITALS: BP 122/71
--- NOTE | 2020-09-05 12:14 | PDOC DISCHARGE SUMMARY ---
Impression - Admit/DC Date/PCP Admission Date/Primary Care Provider: 09/01/20 08:[facility] Discharge Date: 09/03/20 - Additional Information Resuscitation Status: Full Code Referrals: [facility] [Primary Care Provider] - Follow up as needed (Patient goes to [facility]. Patient will have to make own appointment. [facility] does not allow anyone but the patient to make appointments.) Prescriptions: Insulin Lispro [Humalog Insulin (Lispro) 100 unit/mL] 0 - 12 unit SUBCUT .SLD SCALE #10 ml Insulin Lispro [Humalog Insulin (Lispro) 100 unit/mL] 5 unit SUBCUT AC 30 Days #10 ml Insulin Glargine,Hum.rec.anlog [Lantus (Pyxis) Insulin 100 Unit/1 ml 10 ml] 20 unit SUBCUT QHS 30 Days #1 unit Lisinopril [Prinivil 10 mg Tablet] 10 mg PO DAILY 30 Days #30 tablet Home Medications: Albuterol Sulfate [Ventolin Hfa 8 gm Mdi] 2 puff IH Q4HP PRN 09/01/20 Budesonide/Formoterol Fumarate [Symbicort Hfa 160-4.5 Mcg Inhaler 6 gm] 1 puff IH Q12 09/01/20 Insulin Glargine,Hum.rec.anlog [Lantus (Pyxis) Insulin 100 Unit/1 ml 10 ml] 20 unit SUBCUT QHS 30 Days #1 unit 09/03/20 Insulin Lispro [Humalog Insulin (Lispro) 100 unit/mL] 0 - 12 unit SUBCUT .SLD SCALE #10 ml 09/03/20 Insulin Lispro [Humalog Insulin (Lispro) 100 unit/mL] 5 unit SUBCUT AC 30 Days #10 ml 09/03/20 Lisinopril [Prinivil 10 mg Tablet] 10 mg PO DAILY 30 Days #30 tablet 09/03/20 History of Present Illiness History of Present Illness: As per admitting physician's note SELINA PASTRANA is a 34 year old male who presented to the emergency department today with a complaint of dyspnea on exertion associated with dizziness and palpitations, changes in taste, loss of smell, body aches, and epigastric pain with nausea x4 days. Evaluation in the emergency department revealed Tachycardia, hypertension, tachypnea, but otherwise stable vital signs. CBC was remarkable only for a hemoglobin of 17.2 (likely hemoconcentrated in setting of dehydration), anion gap 27, bicarb 9, glucose 381, hemoglobin A1c 14, negative troponins x2, urinalysis significant for protein, glucose, ketones, blood, and an ABG demonstrating uncompensated metabolic acidosis with a pH of 7.27. He is provided IV fluid resuscitation and started on insulin drip. He was then referred to the hospitalist service for further evaluation management of the above-stated complaints findings. Hospital Course Hospital Course: (1) DKA (diabetic ketoacidoses) Patient was admitted to [facility] on continuous cardiac telemetry. He was provided generous IV fluids. Will adjust fluids as electrolytes indicate. Maintain n.p.o. status with the exception of ice chips and small sips of water. Was a started on DKA protocol. (2) Uncontrolled diabetes mellitus New diagnosis diabetes mellitus. A1c > 14%. Presented DKA. Was discharged on basal, sliding scale and prandial insulin. Education was provided. Highly encouraged to follow-up with PCP. (3) Hypertension Normotensive. Euvolemic. Was a started on lisinopril. (4) Suspected COVID-19 virus infection Tested negative for COVID-19 infection. Physical Exam Vital Signs: Temp Pulse Resp BP Pulse Ox 97.8 F 91 14 122/71 99 09/03/20 17:46 09/03/20 17:46 09/03/20 17:46 09/03/20 17:46 09/03/20 17:46 Intake & Output 09/04/20 09/05/20 09/06/20 06:59 06:59 06:59 Intake Total 790 Balance 790 General appearance: PRESENT: no acute distress, obese, well-developed, well- nourished Respiratory exam: PRESENT: clear to auscultation corina. ABSENT: rales, rhonchi, wheezes Pulses: PRESENT: normal dorsalis pedis pul GI/Abdominal exam: PRESENT: normal bowel sounds, soft. ABSENT: distended, guarding, mass, organolmegaly, rebound, tenderness Neurological exam: PRESENT: alert, awake, oriented to person, oriented to place, oriented to time, oriented to situation, CN II-XII grossly intact. ABSENT: motor sensory deficit Results Laboratory Results: WBC 3.5 10^3/uL (4.0-10.5) L 09/02/20 06:54 RBC 4.48 10^6/uL (4.35-5.55) 09/02/20 06:54 Hgb 14.1 g/dL (13.5-17.0) D 09/02/20 06:54 Hct 39.3 % (37.9-51.0) 09/02/20 06:54 MCV 88 fl (80-97) 09/02/20 06:54 MCH 31.5 pg (27.0-33.4) 09/02/20 06:54 MCHC 35.9 g/dL (32.0-36.0) 09/02/20 06:54 RDW 12.9 % (11.5-14.0) 09/02/20 06:54 Plt Count 124 10^3/uL (150-450) L 09/02/20 06:54 Lymph % (Auto) 42.3 % (13-45) 09/01/20 01:35 [place] % (Auto) 5.0 % (3-13) 09/01/20 01:35 Eos % (Auto) 0.2 % (0-6) 09/01/20 01:35 Baso % (Auto) 0.8 % (0-2) 09/01/20 01:35 Absolute Neuts (auto) 2.4 10^3/uL (1.7-8.2) 09/01/20 01:35 Absolute Lymphs (auto) 2.0 10^3/uL (0.5-4.7) 09/01/20 01:35 Absolute Monos (auto) 0.2 10^3/uL (0.1-1.4) 09/01/20 01:35 Absolute Eos (auto) 0.0 10^3/uL (0.0-0.6) 09/01/20 01:35 Absolute Basos (auto) 0.0 10^3/uL (0.0-0.2) 09/01/20 01:35 Seg Neutrophils % 51.7 % (42-78) 09/01/20 01:35 D-Dimer 0.29 ug/mL (0.00-0.50) 09/01/20 10:42 Carbonic Acid 0.49 mmol/L (1.05-1.35) L 09/01/20 05:15 HCO3/H2CO3 Ratio 14:1 09/01/20 05:15 ABG pH 7.27 (7.35-7.45) L 09/01/20 05:15 ABG pCO2 16.3 mmHg (35-45) L* 09/01/20 05:15 ABG pO2 133.9 mmHg (80-100) H 09/01/20 05:15 ABG HCO3 7.2 mmol/L (20-24) L 09/01/20 05:15 ABG Total CO2 7.8 mmol/L (23-27) L 09/01/20 05:15 ABG O2 Saturation 98.4 % (94-98) H 09/01/20 05:15 ABG Base Excess -16.1 mmol/L 09/01/20 05:15 FiO2 ROOM AIR 09/01/20 05:15 Sodium 130.0 mmol/L (137-145) L 09/03/20 16:43 Potassium 3.3 mmol/L (3.6-5.0) L 09/03/20 16:43 Chloride 101 mmol/L (98-107) 09/03/20 16:43 Carbon Dioxide 22 mmol/L (22-30) 09/03/20 16:43 Anion Gap 7 (5-19) 09/03/20 16:43 BUN 9 mg/dL (7-20) 09/03/20 16:43 Creatinine 0.70 mg/dL (0.52-1.25) 09/03/20 16:43 Est GFR ( Amer) > 60 (>60) 09/03/20 16:43 Est GFR (MDRD) Non-Af > 60 (>60) 09/03/20 16:43 Glucose 232 mg/dL (75-110) H 09/03/20 16:43 POC Glucose 240 mg/dL (70-110) H 09/03/20 15:47 Hemoglobin A1c % > 14.0 % (4.7-6.0) H 09/01/20 01:35 Calcium 8.6 mg/dL (8.4-10.2) 09/03/20 16:43 Ferritin 310.00 ng/mL (17.9-464.0) 09/01/20 10:42 Total Bilirubin 0.8 mg/dL (0.2-1.3) 09/01/20 05:50 Direct Bilirubin 0.3 mg/dL (0.0-0.4) 09/01/20 05:50 Neonat Total Bilirubin Not Reportable 09/01/20 05:50 Neonat Direct Bilirubin Not Reportable 09/01/20 05:50 Neonat Indirect Bili Not Reportable 09/01/20 05:50 AST 22 U/L (17-59) 09/01/20 05:50 ALT 20 U/L (<50) 09/01/20 05:50 Alkaline Phosphatase 92 U/L (38-126) 09/01/20 05:50 Lactate Dehydrogenase 149 U/L (120-246) 09/01/20 10:42 Troponin I < 0.012 ng/mL 09/01/20 05:50 C-Reactive Protein < 5.0 mg/L (<10.0) 09/01/20 10:42 Total Protein 8.8 g/dL (6.3-8.2) H 09/01/20 05:50 Albumin 5.0 g/dL (3.5-5.0) 09/01/20 05:50 Triglycerides 118 mg/dL (<150) 09/02/20 06:54 Cholesterol 228.98 mg/dL (0-200) H 09/02/20 06:54 LDL Cholesterol Direct 151 mg/dL (<100) H 09/02/20 06:54 VLDL Cholesterol 24.0 mg/dL (10-31) 09/02/20 06:54 HDL Cholesterol 59 mg/dL (>40) 09/02/20 06:54 Lipase 206.4 U/L (23-300) 09/01/20 01:35 TSH 1.42 uIU/mL (0.47-4.68) 09/02/20 06:54 Urine Color STRAW 09/01/20 05:55 Urine Appearance CLEAR 09/01/20 05:55 Urine pH 5.0 (5.0-9.0) 09/01/20 05:55 Ur Specific [place] 1.035 09/01/20 05:55 Urine Protein 30 mg/dL (NEGATIVE) H 09/01/20 05:55 Urine Glucose (UA) >=500 mg/dL (NEGATIVE) H 09/01/20 05:55 Urine Ketones 80 mg/dL (NEGATIVE) H 09/01/20 05:55 Urine Blood SMALL (NEGATIVE) H 09/01/20 05:55 Urine Nitrite NEGATIVE (NEGATIVE) 09/01/20 05:55 Urine Bilirubin NEGATIVE (NEGATIVE) 09/01/20 05:55 Urine Urobilinogen NEGATIVE mg/dL (<2.0) 09/01/20 05:55 Ur Leukocyte Esterase NEGATIVE (NEGATIVE) 09/01/20 05:55 Urine WBC (Auto) 0 /HPF 09/01/20 05:55 Squamous Epi Cells Auto <1 /HPF 09/01/20 05:55 Urine Mucus (Auto) RARE /LPF 09/01/20 05:55 Urine Ascorbic Acid NEGATIVE (NEGATIVE) 09/01/20 05:55 Influenza A (RT-PCR) NEGATIVE (NEGATIVE) 09/01/20 10:38 Influenza B (RT-PCR) NEGATIVE (NEGATIVE) 09/01/20 10:38 RSV (RT-PCR) NEGATIVE (NEGATIVE) 09/01/20 10:38 SARS-CoV-2 Rap RNA(RT-PCR) NEGATIVE (NEGATIVE) 09/01/20 10:38 09/01/20 09/01/20 01:35 05:50 Troponin I < 0.012 < 0.012 Impressions: Chest X-Ray 08/31/20 20:23 IMPRESSION: No acute disease. Stroke Is this a Stroke Patient?: No Acute Heart Failure Is this a Heart Failure Patient?: No
== END 2020-09-03 18:04 | disposition home or self-care (01) | DRG 639 ==
LOC: ER 19:41 → EH 09-01 08:21 → 5 09-01 14:31
PROVIDERS: ADMIT Hospitalist; ATTEND Internal Medicine
DX: E13.10 Other specified diabetes mellitus with ketoacidosis without coma (principal); I10 Essential (primary) hypertension; E86.0 Dehydration; J44.9 Chronic obstructive pulmonary disease, unspecified; E66.9 Obesity, unspecified; Z87.891 Personal history of nicotine dependence; Z82.49 Family history of ischemic heart disease and other diseases of the circulatory system; Z83.3 Family history of diabetes mellitus; Z20.822 Contact with and (suspected) exposure to COVID-19
CPT/HCPCS: 36415; 71045; 80048; 80053; 80061; 81001; 82728; 82803; 82962; 83036; 83615; 83690; 84443; 84484; 85025; 85027; 85379; 86140; 87070; 93005; 93010; 96361; 96365; 99285; 0241U; C9113; C9803; J1650; J1815; J3490; J7030; S0119